=== PATIENT | male | born 1965 | race African-American/Black ===

== ENCOUNTER 2017-07-01 18:20 | Inpatient (IN) | payer OTHER ==
[~2017-07-01] VITALS: Ht 175.3 cm; Wt 124.8 kg
[2017-07-01 19:13] LABS: HEMOGLOBIN 12.7 G/DL (12.5-16.6); MCH 33.4 PG (29.0-34.0); MCHC 32.6 G/DL (30.0-36.0); MCV 102.6 FL (86-99); NRBC (%) 0.1 /100 WBC (0-0); RBC DIS.WIDTH-CV 13.5 % (11.8-14.6); RBC DIS.WIDTH-SD 51.3 % (39-53); WHITE BLOOD COUNT 23.6 K/uL (4.1-10.2)
[2017-07-01 19:17] LABS: PLATELET COUNT 244 K/uL (156-360)
[2017-07-01 19:24] LABS: CHLORIDE 101 mEq/L (99-109); POTASSIUM 4.2 mEq/L (3.7-5.4); SODIUM 137 mEq/L (136-147)
[2017-07-01 19:26] LABS: GLUCOSE 191 mg/dL (70-99)
[2017-07-01 19:29] LABS: SERUM ETHYL ALCOHOL < 10 mg/dL
[2017-07-01 19:30] LABS: CREATININE 1.5 mg/dL (0.6-1.3); GFR ESTIMATE (CALCULATED) > 59 mL/min/ (58.99-99999)
[2017-07-01 19:32] LABS: UREA NITROGEN (BUN) 26 mg/dL (9-23)
[2017-07-01 19:33] LABS: ACETAMINOPHEN (TYLENOL) < 10 mcg/mL (10-30); SALICYLATE < 5.0 MG/DL (15-30)
[2017-07-01 19:40] LABS: TROP-I INTERPRETATION NEGATIVE; TROPONIN-I < 0.01 ng/mL (0.0-0.30)
[2017-07-01 22:10] LABS: AMPHETAMINE NEGATIVE (500 ng/mL); BARBITURATES NEGATIVE (200 ng/mL); BENZODIAZEPINES NEGATIVE (150 ng/mL); BUPRENORPHINE NEGATIVE (10 ng/mL); COCAINE PRESUMPTIVE POSITIVE (150 ng/mL); METHADONE NEGATIVE (200 ng/mL); METHAMPHETAMINE NEGATIVE (500 ng/mL); OPIATES (MORPHINE) PRESUMPTIVE POSITIVE (100 ng/mL); OXYCODONE NEGATIVE (100 ng/mL); PHENCYCLIDINE NEGATIVE (25 ng/mL); PROPOXYPHENE NEGATIVE (300 ng/mL); THC CANNABINOIDS PRESUMPTIVE POSITIVE (50 ng/mL); TRICYCLIC ANTIDEPRESSANTS NEGATIVE (300 ng/mL)
[2017-07-01] MEDS ORDERED: IRON325 M1 PO (22:19)
[2017-07-01] MEDS ORDERED: LISINOPRIL20 MG PO (22:19)
[2017-07-01] MEDS ORDERED: GLIPIZIDE XL5 MG PO (22:22)
[2017-07-01] MEDS ORDERED: COUMADIN10 MG PO ×2 (22:22→22:38)
[2017-07-01] MEDS ORDERED: GLUCOPHAGE1000 MG PO (22:23)
[2017-07-01] MEDS ORDERED: COUMADIN2.5 MG PO (22:37)
[2017-07-01 23:11] LABS: APPEARANCE SL.HAZY ((CLEAR)); BILIRUBIN NEGATIVE; BLOOD SMALL; COLOR YELLOW ((YELLOW)); GLUCOSE (STRIP) NEGATIVE; KETONES 5; LEUKOCYTES NEGATIVE; NITRITE NEGATIVE; PROTEIN (STRIP) NEGATIVE; SPECIFIC GRAVITY 1.019 (1.000-1.030); UROBILINOGEN 0.2 MG/DL (0.2-1.0)
[2017-07-01 23:16] LABS: BACTERIA NONE SEEN /HPF; EPITHELIAL CELLS RARE /HPF; MUCUS TRACE /LPF; RED BLOOD CELLS 0-5 /HPF (0-5); UCUL ADDED? NO; WHITE BLOOD CELLS 0-5 /HPF (0-5)
[2017-07-02] VITALS (7 sets, daily range): BP systolic 114–164; BP diastolic 69–98
[2017-07-02 01:39] LABS: INTER. NORMALIZED RATIO 1.7
[2017-07-02 08:41] LABS: HEMATOCRIT 35.3 % (38.0-50.0); HEMOGLOBIN 11.4 G/DL (12.5-16.6); MCH 32.9 PG (29.0-34.0); MCHC 32.3 G/DL (30.0-36.0); RBC DIS.WIDTH-CV 13.7 % (11.8-14.6); RBC DIS.WIDTH-SD 50.6 % (39-53); RED BLOOD COUNT 3.46 M/uL (4.00-5.50); WHITE BLOOD COUNT 13.2 K/uL (4.1-10.2)
[2017-07-02 09:10] LABS: PLAT.SUFFICIENCY ADEQUATE; PLATELET COUNT 199 K/uL (156-360)
[2017-07-02 09:11] LABS: ALBUMIN 3.7 G/DL (3.2-4.8); ALKALINE PHOSPHATASE 52 IU/L (3-129); ALT (GPT) 19 IU/L (3-49); AST (GOT) 32 IU/L (2-34); CHLORIDE 101 MEQ/L (99-109); GLUCOSE 134 mg/dL (70-99); POTASSIUM 4.1 MEQ/L (3.7-5.4); SODIUM 135 MEQ/L (136-147); TOTAL BILIRUBIN 0.6 MG/DL (0.0-1.0); TOTAL PROTEIN 6.1 G/DL (6.4-8.3); UREA NITROGEN (BUN) 15 mg/dL (9-23)
[2017-07-02 09:12] LABS: CREATININE 0.9 MG/DL (0.6-1.3); GFR ESTIMATE (CALCULATED) > 59 mL/min/ (58.99-99999)
[2017-07-03 04:42] LABS: INTER. NORMALIZED RATIO 1.8
[2017-07-03 04:46] LABS: HEMATOCRIT 34.6 % (38.0-50.0); HEMOGLOBIN 11.8 G/DL (12.5-16.6); MCH 33.8 PG (29.0-34.0); MCHC 34.1 G/DL (30.0-36.0); MCV 99.1 FL (86-99); NRBC (%) 0.3 /100 WBC (0-0); PLATELET COUNT 217 K/uL (156-360); RBC DIS.WIDTH-CV 13.2 % (11.8-14.6); RBC DIS.WIDTH-SD 47.8 % (39-53); RED BLOOD COUNT 3.49 M/uL (4.00-5.50); WHITE BLOOD COUNT 9.1 K/uL (4.1-10.2)
[2017-07-03 04:54] LABS: CHLORIDE 106 mEq/L (99-109); POTASSIUM 3.9 mEq/L (3.7-5.4); SODIUM 138 mEq/L (136-147)
[2017-07-03 04:56] LABS: GLUCOSE 108 mg/dL (70-99)
[2017-07-03 05:00] LABS: CREATININE 0.8 mg/dL (0.6-1.3); GFR ESTIMATE (CALCULATED) > 59 mL/min/ (58.99-99999)
[2017-07-03 05:01] LABS: UREA NITROGEN (BUN) 9 mg/dL (9-23)
[2017-07-03 07:57] VITALS: BP 171/88
[2017-07-03] MEDS ORDERED: ESCITALOPRAM OX10 MG PO (10:25)
[2017-07-03] MEDS ORDERED: AUGMENTIN500 MG PO (10:28)
[2017-07-03 11:01] VITALS: BP 165/78
== END 2017-07-03 12:37 | disposition home or self-care (01) | DRG 917 ==
LOC: EME 18:20 → 3EAST 23:32 → EDOF 23:32 → ENRESERV 23:34 → 3EAST 07-02 01:33
PROVIDERS: Emergency Medicine; Hospitalist; Physician Assistant
DX: T40.1X1A Poisoning by heroin, accidental (unintentional), initial encounter (principal); T40.5X1A Poisoning by cocaine, accidental (unintentional), initial encounter; N17.9 Acute kidney failure, unspecified; J69.0 Pneumonitis due to inhalation of food and vomit; F11.10 Opioid abuse, uncomplicated; F12.10 Cannabis abuse, uncomplicated; F14.10 Cocaine abuse, uncomplicated; I25.10 Atherosclerotic heart disease of native coronary artery without angina pectoris; E11.9 Type 2 diabetes mellitus without complications; F17.200 Nicotine dependence, unspecified, uncomplicated; I10 Essential (primary) hypertension; E66.9 Obesity, unspecified; Z79.01 Long term (current) use of anticoagulants; Z95.0 Presence of cardiac pacemaker; Z95.1 Presence of aortocoronary bypass graft; Z68.41 Body mass index [BMI] 40.0-44.9, adult
CPT/HCPCS: 70450; 71045; 80048; 80053; 81003; 82948; 83605; 83880; 84484; 84999; 85027; 85610; 87040; 93005; 99281; 99285; G0480; J0295; J2310; J2543; J3370; J7030; J7050

== ENCOUNTER 2017-09-21 12:48 | Emergency (ER) | payer OTHER ==
[~2017-09-21] VITALS: Ht 175.3 cm; Wt 127.4 kg
[~2017-09-21 12:48] MED LIST: AUGMENTIN500 MG PO; COUMADIN10 MG PO; COUMADIN2.5 MG PO; ESCITALOPRAM OX10 MG PO; GLIPIZIDE XL5 MG PO; GLUCOPHAGE1000 MG PO; IRON325 M1 PO; LISINOPRIL20 MG PO
[2017-09-21] MEDS ORDERED: ULTRAM50 MG PO (15:41)
[2017-09-21 16:25] VITALS: BP 138/90
== END 2017-09-21 16:28 | disposition home or self-care (01) ==
LOC: EME 12:48
PROC: 2W3DX1Z Immobilization of Left Lower Arm using Splint (ICD-10-PCS; principal; 2017-09-21)
DX: S63.92XA Sprain of unspecified part of left wrist and hand, initial encounter (principal); S60.222A Contusion of left hand, initial encounter; I10 Essential (primary) hypertension; Z95.0 Presence of cardiac pacemaker; Z95.2 Presence of prosthetic heart valve; Z79.84 Long term (current) use of oral hypoglycemic drugs; Z79.01 Long term (current) use of anticoagulants; Z87.891 Personal history of nicotine dependence; Y04.2XXA Assault by strike against or bumped into by another person, initial encounter
CPT/HCPCS: 73130; 99281; 99284

== ENCOUNTER 2017-09-26 01:13 | Emergency (ER) | payer OTHER ==
[~2017-09-26] VITALS: Ht 175.3 cm; Wt 124.6 kg
[~2017-09-26 01:13] MED LIST changes: +ULTRAM50 MG PO
[2017-09-26] MEDS ORDERED: PERCOCET 5/31 TABLET PO (03:44)
[2017-09-26 04:27] VITALS: BP 149/101
== END 2017-09-26 04:27 | disposition home or self-care (01) ==
LOC: EME 01:13 → EXP 01:13
PROC: 2W3DX1Z Immobilization of Left Lower Arm using Splint (ICD-10-PCS; principal; 2017-09-26)
DX: M25.532 Pain in left wrist (principal); M79.89 Other specified soft tissue disorders; Z95.1 Presence of aortocoronary bypass graft
CPT/HCPCS: 73200; 99281; 99284

== ENCOUNTER 2017-10-21 03:18 | Emergency (ER) | payer OTHER ==
[~2017-10-21] VITALS: Ht 177.8 cm; Wt 106.1 kg
[~2017-10-21 03:18] MED LIST changes: +PERCOCET 5/31 TABLET PO
[2017-10-21 04:02] LABS: CHLORIDE 106 mEq/L (99-109); POTASSIUM 3.7 mEq/L (3.7-5.4)
[2017-10-21 04:03] LABS: SODIUM 139 mEq/L (136-147)
[2017-10-21 04:05] LABS: GLUCOSE 151 mg/dL (70-99); TOTAL PROTEIN 7.1 g/dL (6.4-8.3)
[2017-10-21 04:07] LABS: AMYLASE 58 IU/L (1-118); INTER. NORMALIZED RATIO 1.4; TOTAL BILIRUBIN 0.9 mg/dL (0.0-1.0)
[2017-10-21 04:08] LABS: ALKALINE PHOSPHATASE 81 IU/L (3-129); GFR ESTIMATE (CALCULATED) > 59 mL/min/ (58.99-99999)
[2017-10-21 04:10] LABS: AST (GOT) 32 IU/L (2-34); PTT 29.7 SEC (25-37); UREA NITROGEN (BUN) 17 mg/dL (9-23)
[2017-10-21 04:11] LABS: ALT (GPT) 26 IU/L (3-49)
[2017-10-21 04:12] LABS: SERUM ETHYL ALCOHOL < 10 mg/dL
[2017-10-21 04:15] LABS: LIPASE 51 U/L (1.0-51.0)
[2017-10-21 04:17] LABS: TROP-I INTERPRETATION NEGATIVE; TROPONIN-I < 0.01 ng/mL (0.0-0.30)
[2017-10-21 04:19] LABS: HEMATOCRIT 39.9 % (38.0-50.0); HEMOGLOBIN 13.4 G/DL (12.5-16.6); MCH 33.8 PG (29.0-34.0); MCHC 33.6 G/DL (30.0-36.0); MCV 100.8 FL (86-99); NRBC (%) 0.3 /100 WBC (0-0); PLATELET COUNT 258 K/uL (156-360); RBC DIS.WIDTH-CV 14.5 % (11.8-14.6); RBC DIS.WIDTH-SD 53.7 % (39-53); RED BLOOD COUNT 3.96 M/uL (4.00-5.50); WHITE BLOOD COUNT 9.7 K/uL (4.1-10.2)
[2017-10-21 06:44] LABS: AMPHETAMINE NEGATIVE (500 ng/mL); BARBITURATES NEGATIVE (200 ng/mL); BENZODIAZEPINES NEGATIVE (150 ng/mL); BUPRENORPHINE NEGATIVE (10 ng/mL); COCAINE NEGATIVE (150 ng/mL); METHADONE NEGATIVE (200 ng/mL); METHAMPHETAMINE NEGATIVE (500 ng/mL); OPIATES (MORPHINE) NEGATIVE (100 ng/mL); OXYCODONE NEGATIVE (100 ng/mL); PHENCYCLIDINE NEGATIVE (25 ng/mL); PROPOXYPHENE NEGATIVE (300 ng/mL); THC CANNABINOIDS PRESUMPTIVE POSITIVE (50 ng/mL); TRICYCLIC ANTIDEPRESSANTS NEGATIVE (300 ng/mL)
[2017-10-21 10:04] VITALS: BP 134/76
== END 2017-10-21 10:06 | disposition short-term general hospital (02) ==
LOC: EME → EDBD 03:18 → EME 03:18 → ENRESERV 07:56 → CANRESERV 08:11 → EME 10:06
PROVIDERS: Emergency Medicine
DX: I63.412 Cerebral infarction due to embolism of left middle cerebral artery (principal); R47.01 Aphasia; R29.810 Facial weakness; G83.21 Monoplegia of upper limb affecting right dominant side; R41.82 Altered mental status, unspecified; R29.710 NIHSS score 10; R00.0 Tachycardia, unspecified; I44.0 Atrioventricular block, first degree; F12.90 Cannabis use, unspecified, uncomplicated; I10 Essential (primary) hypertension; Z95.0 Presence of cardiac pacemaker; Z95.1 Presence of aortocoronary bypass graft; Z95.2 Presence of prosthetic heart valve; Z79.01 Long term (current) use of anticoagulants; E11.9 Type 2 diabetes mellitus without complications; Z79.84 Long term (current) use of oral hypoglycemic drugs; Z82.3 Family history of stroke; Z84.1 Family history of disorders of kidney and ureter
CPT/HCPCS: 70450; 70496; 70498; 71045; 80053; 82140; 82150; 83690; 83880; 84484; 84999; 85027; 85610; 85730; 93005; 99281; 99285; G0480; J7030